=== PATIENT | female | born 1965 | race Caucasian/White ===

== ENCOUNTER → 2019-03-09 | Outpatient (CLI) | payer OTHER ==
[2019-03-09 09:28] LABS: BASOPHILS % (AUTO) 1 % (0-10); EOSINOPHILS # (AUTO) 0.1 10^3/uL (0.0-0.3); EOSINOPHILS % (AUTO) 2 % (0-10); HEMATOCRIT 45 % (35-52); HEMOGLOBIN 14.5 G/DL (11.5-16.0); LYMPHOCYTES # (AUTO) 1.8 X 10^3 (1.0-4.0); LYMPHOCYTES % (AUTO) 35 % (12-44); MEAN CORPUSCULAR HEMOGLOBIN 29 PG (25-34); MEAN CORPUSCULAR HGB CONC 32 G/DL (32-36); MEAN CORPUSCULAR VOLUME 88 FL (80-99); MEAN PLATELET VOLUME 10.3 FL (7.4-10.4); MONOCYTES # (AUTO) 0.3 X 10^3 (0.0-1.0); MONOCYTES % (AUTO) 6 % (0-12); NEUTROPHILS # (AUTO) 2.8 X 10^3 (1.8-7.8); NEUTROPHILS % (AUTO) 55 % (42-75); PLATELET COUNT 236 10^3/uL (130-400); RED CELL DISTRIBUTION WIDTH 12.5 % (10.0-14.5)
[2019-03-09 09:44] LABS: ALANINE AMINOTRANSFERASE 50 U/L (0-55); ALBUMIN 4.3 GM/DL (3.2-4.5); ALKALINE PHOSPHATASE 87 U/L (40-136); BILIRUBIN,TOTAL 0.7 MG/DL (0.1-1.0); BUN/CREATININE RATIO 14; CALCIUM 9.2 MG/DL (8.5-10.1); CARBON DIOXIDE 25 MMOL/L (21-32); CHLORIDE 103 MMOL/L (98-107); CREATININE SERUM 0.74 MG/DL (0.60-1.30); GFR ESTIMATED > 60; GLUCOSE 109 MG/DL (70-105); LIPASE 27 U/L (8-78); POTASSIUM 4.3 MMOL/L (3.6-5.0); SODIUM 138 MMOL/L (135-145); TOTAL PROTEIN 6.8 GM/DL (6.4-8.2)
[2019-03-09 09:58] LABS: AMYLASE 54 U/L (25-125)
== END ==
LOC: RAD FS 09:09
PROVIDERS: ATTEND Nurse Practitioner Family
DX: R10.84 Generalized abdominal pain (principal)
CPT/HCPCS: 36415; 80053; 82150; 83690; 85025

== ENCOUNTER 2019-03-22 05:36 | Outpatient (CLI) | payer OTHER ==
[~2019-03-22] VITALS: Ht 154 cm; Wt 79.5 kg
[2019-03-22] MEDS ORDERED: BUSP15TA60 PO (15:13)
[2019-03-22] MEDS ORDERED: ALPR0.25 PO (15:13)
[2019-03-22] MEDS ORDERED: PANT40TA2 PO (15:13)
[2019-03-22] MEDS ORDERED: SIMV20TA26 PO (15:13)
[2019-03-22] MEDS ORDERED: FLUO60TA PO (15:13)
[2019-03-22] MEDS ORDERED: ZOLP10TA5 PO (15:13)
== END 2019-03-22 15:02 | disposition home or self-care (01) ==
LOC: PREOP 05:36
PROVIDERS: ATTEND Surgery
DX: Z01.818 Encounter for other preprocedural examination (principal)

== ENCOUNTER 2021-09-17 12:47 | Emergency (ER) | payer OTHER ==
[~2021-09-17] VITALS: Ht 154.9 cm; Wt 79.5 kg
[~2021-09-17 12:47] MED LIST: ALPR0.25 PO; BUSP15TA60 PO; FLUO60TA PO; HYDR-34 PO; PANT40TA2 PO; SIMV20TA26 PO; ZOLP10TA5 PO
[2021-09-17 13:15] LABS: BASOPHILS % (AUTO) 0 % (0-10); EOSINOPHILS % (AUTO) 0 % (0-10); HEMATOCRIT 46 % (35-52); HEMOGLOBIN 15.6 g/dL (11.5-16.0); LYMPHOCYTES % (AUTO) 34 % (12-44); MEAN CORPUSCULAR HEMOGLOBIN 29 pg (25-34); MEAN CORPUSCULAR HGB CONC 34 g/dL (32-36); MEAN CORPUSCULAR VOLUME 86 fL (80-99); MEAN PLATELET VOLUME 10.1 fL (9.0-12.2); MONOCYTES # (AUTO) 0.4 10^3/uL (0.0-1.0); MONOCYTES % (AUTO) 7 % (0-12); NEUTROPHILS # (AUTO) 3.5 10^3/uL (1.8-7.8); NEUTROPHILS % (AUTO) 60 % (42-75); PLATELET COUNT 268 10^3/uL (130-400); WHITE BLOOD COUNT 5.9 10^3/uL (4.3-11.0)
[2021-09-17 13:17] LABS: BILIRUBIN,URINE NEGATIVE (NEGATIVE); CLARITY,URINE CLEAR; COLOR,URINE YELLOW; GLUCOSE, URINE (UA) NEGATIVE (NEGATIVE); KETONES,URINE NEGATIVE (NEGATIVE); LEUKOCYTE ESTERASE ,URINE NEGATIVE (NEGATIVE); NITRITE,URINE NEGATIVE (NEGATIVE); PROTEIN,URINE NEGATIVE (NEGATIVE)
[2021-09-17 13:40] LABS: BACTERIA,URINE FEW /HPF; WBC,URINE RARE /HPF
[2021-09-17 13:41] LABS: URINE OTHER CLUE CELLS NOTED /HPF
[2021-09-17 13:47] LABS: SODIUM 138 MMOL/L (135-145)
[2021-09-17 13:48] LABS: ALANINE AMINOTRANSFERASE 38 U/L (0-55); ALBUMIN 4.6 GM/DL (3.2-4.5); ALKALINE PHOSPHATASE 84 U/L (40-136); BILIRUBIN,TOTAL 0.7 MG/DL (0.1-1.0); BUN/CREATININE RATIO 9; CALCIUM 9.3 MG/DL (8.5-10.1); CARBON DIOXIDE 24 MMOL/L (21-32); CHLORIDE 103 MMOL/L (98-107); CREATININE SERUM 0.88 MG/DL (0.60-1.30); GFR ESTIMATED 77; GLUCOSE 102 MG/DL (70-105); POTASSIUM 3.9 MMOL/L (3.6-5.0); SALICYLATE < 0.3 MG/DL (5.0-20.0); TOTAL PROTEIN 7.1 GM/DL (6.4-8.2)
[2021-09-17 13:49] LABS: ACETAMINOPHEN < 10 UG/ML (10-30)
[2021-09-17 13:52] LABS: AMPHETAMINE SCREEN, URINE NEGATIVE (NEGATIVE); BARBITURATE SCREEN URINE NEGATIVE (NEGATIVE); BENZODIAZEPINES SCREEN URINE NEGATIVE (NEGATIVE); CANNABINOID SCREEN, URINE POSITIVE (NEGATIVE); COCAINE SCREEN URINE NEGATIVE (NEGATIVE); METHADONE STAT NEGATIVE (NEGATIVE); OPIATE SCREEN URINE NEGATIVE (NEGATIVE); OXYCODONE STAT NEGATIVE (NEGATIVE); PROPOXYPHENE STAT NEGATIVE (NEGATIVE); TRICYCLIC ANTIDEPRESSANTS SCRE NEGATIVE (NEGATIVE)
--- NOTE | 2021-09-17 14:12 | ED Psychosocial ---
General Chief Complaint: Suicidal Ideation Risk Stated Complaint: SUICIDAL IDEATION Nursing Triage Note: Patient presents to the ED with c/o suicidal ideation. States, "I just can do this life anymore." Reports she recently lost her father and hasn't seen her grandson for a year in a half. States that everything is just getting to be to much. Reports she has a plan to kill herself. Source: patient Exam Limitations: no limitations (KANDY GUADALUPE MD) History of Present Illness Date Seen by Provider: Sep 17, 2021 Time Seen by Provider: 12:58 Initial Comments 55-year-old female patient with history of depression, anxiety, hyperlipidemia complaining of suicidal ideation. Patient states she feels overwhelmed with stress related to her work, losing her father 1 month ago, unable to see her grandson since November of last year. She states for the last few weeks has had suicidal ideation with plan to take pills and kill herself. Patient denies homicidal ideation and hallucination. Patient denies history of suicidal attempt or mental hospitalization. Patient smokes cigarettes 1 pack daily and marijuana once a week. Patient states she drinks alcohol once a week or less. (KANDY GUADALUPE MD) Allergies and Home Medications Allergies Coded Allergies: No Known Drug Allergies (Unverified , 03/22/19) Patient Home Medication List Home Medication List Reviewed: Yes (KANDY GUADALUPE MD) Alprazolam (Xanax) 0.25 Mg Tablet, 0.25 MG PO PRN, (Reported) Entered as Reported by: YOANA ARRIAZA on 03/22/191512 Buspirone HCl (Buspirone HCl) 15 Mg Tablet, 15 MG PO DAILY, (Reported) Entered as Reported by: YOANA ARRIAZA on 03/22/191512 Fluoxetine HCl (Fluoxetine HCl) 60 Mg Tablet, 60 MG PO DAILY, (Reported) Entered as Reported by: YOANA ARRIAZA on 03/22/191512 Hydrocodone Bit/Acetaminophen (HYDROcodone/APAP 7.5/325 TAB) 1 Each Tablet, 1-2 TAB PO Q4H Prescribed by: BRIA DONAHUE on 03/29/19 0836 Pantoprazole Sodium (Protonix) 40 Mg Tablet.dr, 40 MG PO DAILY, (Reported) Entered as Reported by: YOANA ARRIAZA on 03/22/191512 Simvastatin (Simvastatin) 20 Mg Tablet, 20 MG PO DAILY, (Reported) Entered as Reported by: YOANA ARRIAZA on 03/22/191512 Zolpidem Tartrate (Zolpidem Tartrate) 10 Mg Tablet, 10 MG PO HS, (Reported) Entered as Reported by: YOANA ARRIAZA on 03/22/191512 Review of Systems Constitutional: no symptoms reported EENTM: no symptoms reported Respiratory: no symptoms reported Cardiovascular: no symptoms reported Gastrointestinal: no symptoms reported Genitourinary: no symptoms reported Musculoskeletal: no symptoms reported Skin: no symptoms reported Psychiatric/Neurological: See HPI (KANDY GUADALUPE MD) All Other Systems Reviewed Negative Unless Noted: Yes (KANDY GUADALUPE MD) Past [place] Hx Patient Social History Tobacco Use?: Yes Substance use?: Yes Substance type: Marijuana Additional substance use comme: Lats used yesterday Substance frequency: Once in a while Alcohol Use?: Yes Alcohol Frequency: Once in a while Pt feels they are or have been: No (KANDY GUADALUPE MD) Seasonal Allergies Seasonal Allergies: Yes (KANDY GUADALUPE MD) Past Medical History Surgery/Hospitalization HX: IBS; Anxiety; Depression; Cholecysectomy; Hysterectomy Surgeries: Yes (HEMORRHOIDECTOMY) Hysterectomy Respiratory: No Currently Using CPAP: No Currently Using BIPAP: No Cardiac: Yes High Cholesterol Neurological: No Genitourinary: No Gastrointestinal: Yes Gastroesophageal Reflux, Chronic Constipation, Chronic Diarrhea, Gall Bladder Disease Musculoskeletal: No Endocrine: No HEENT: Yes (GLASSES) Loss of Vision: Denies Hearing Impairment: Denies Cancer: No Psychosocial: Yes Sleep Difficulties, Anxiety, Depression Nursing Suicide Risk Notes: Patient presents to the ED with c/o suicidal ideation. States, "I just can't do this life anymore." Reports plan of taking pills. Reports she would take her sleeping pills, antidepressants, and xanax liek medications. Reports family issues, "I haven't seen my grandson since November of last year and my dad last month." Integumentary: No Blood Disorders: Yes Adverse Reaction/Blood Tranf: No (HAS HAD BLOOD WITH NO REACTION) (KANDY GUADALUPE MD) Physical Exam Vital Signs - First Documented 09/17/21 13:00 Temp 36.5 Pulse 96 Resp 18 B/P (MAP) 123/76 (92) Pulse Ox 97 O2 Delivery Room Air (DARRON SINGH MD) Capillary Refill : Less Than 3 Seconds (KANDY GUADALUPE MD) Height, Weight, BMI Height: '" Weight: lbs. oz. kg; 33.00 BMI Method: General Appearance: mild distress, obese, other (Depressed, tearful) HEENT: PERRL/EOMI, normal ENT inspection Neck: non-tender, full range of motion Respiratory: chest non-tender, lungs clear, normal breath sounds Cardiovascular: regular rate, rhythm, no edema Gastrointestinal: normal bowel sounds, non tender Extremities: normal range of motion, non-tender, normal inspection Neurologic/Psychiatric: no motor/sensory deficits, alert, depressed affect Appearance/Memory: neat, no memory impairment Behavior/Eye Contact: cooperative, normal speech, avoids eye contact Thoughts/Hallucinations: normal thought pattern, no apparent hallucination Skin: normal color (KANDY GUADALUPE MD) Suicide Risk Suicide Risk Suicide Risk Level / RN Screen: Moderate Low Suicide Risk Level []Suicidal Ideation WITHOUT method, intent, plan or behavior more than a month ago []]Modifiable risk factors and strong protective factors []No reported history of suicidal ideation or behavior []Patient reports/exhibits symptoms consistent with psychosis []Patient reports a plan that would be unrealistic/impossible to complete and intent []Suicide attempt prior to arrival (Indicates at LEAST Low Suicide Risk, consider other risk factors) Moderate Suicide Risk Level: []Suicidal ideation with method, WITHOUT plan, intent or behavior in the past month []Multiple risk factors and few protective factors []Patient reports intent to follow through on plan to end life if allowed to leave hospital, and has attempted to elope from the hospital High Suicide Risk Level: [] Suicidal ideation with intent or intent with a plan in the past month [] Patient has harmed self or attempted suicide while in the hospital [] Patient has hx of or current Command Auditory hallucinations to harm self or others that they follow without hesitation [] Patient refuses to disclose plan, and indicates intent to complete [] Patient reports plan that is possible to accomplish and/or has means to complete Risk factors supporting recommendation: [] Non-compliance with treatment (acute or chronic) [] Patient has access to or owns firearms and/or stockpiled medications [] Hx Impulsive behavior [] Pending incarceration or homelessness [] Sexual abuse [] Family history and/or exposure to suicide [] Adverse childhood experiences [] Exposure to violence or negative socio-political cultural, and economic forces [] Current or hx of substance use/abuse [] Chronic physical pain or other acute medical problem (AIDS, COPD, Cancer, etc) [] Perceived burden on family or others [] Patient has attempted to elope [] Unable to answer and/or unable to identify [] Refuses to agree to a safety plan Protective Factors supporting recommendation: [] Identifies reasons for living [] Future plans/goals [] Engaged in work or School [] Good family support network [] Good social support network [] Responsibility to family [] Belief that suicide is immoral, against their christian beliefs [] High spirituality and involvement in worship community [] Fear of or dying due to pain and suffering [] Established outpt psychiatric services [] Unable to answer and/or unable to identify Risk Assessment Tool Score: Moderate (KANDY GUADALUPE MD) Progress/Results/Core Measures Results/Orders Lab Results Laboratory Tests Test 09/17/21 12:56 09/17/21 13:10 09/17/21 13:25 Range/Units Urine Color YELLOW Urine Clarity CLEAR Urine pH 6.0 5-9 Urine Specific [place] <=1.005 1.016-1.022 Urine Protein NEGATIVE NEGATIVE Urine Glucose (UA) NEGATIVE NEGATIVE Urine Ketones NEGATIVE NEGATIVE Urine Nitrite NEGATIVE NEGATIVE Urine Bilirubin NEGATIVE NEGATIVE Urine Urobilinogen 0.2 < = 1.0 MG/DL Urine Leukocyte Esterase NEGATIVE NEGATIVE Urine RBC (Auto) NEGATIVE NEGATIVE Urine RBC NONE /HPF Urine WBC RARE /HPF Urine Squamous Epithelial Cells 10-25 H /HPF Urine Crystals NONE /LPF Urine Bacteria FEW H /HPF Urine Casts NONE /LPF Urine Mucus SMALL H /LPF Urine Other CLUE CELLS NOTED /HPF Urine Culture Indicated NO Urine Opiates Screen NEGATIVE NEGATIVE Urine Oxycodone Screen NEGATIVE NEGATIVE Urine Methadone Screen NEGATIVE NEGATIVE Urine Propoxyphene Screen NEGATIVE NEGATIVE Urine Barbiturates Screen NEGATIVE NEGATIVE Ur Tricyclic Antidepressants Screen NEGATIVE NEGATIVE Urine Phencyclidine Screen NEGATIVE NEGATIVE Urine Amphetamines Screen NEGATIVE NEGATIVE Urine Methamphetamines Screen NEGATIVE NEGATIVE Urine Benzodiazepines Screen NEGATIVE NEGATIVE Urine Cocaine Screen NEGATIVE NEGATIVE Urine Cannabinoids Screen POSITIVE H NEGATIVE White Blood Count 5.9 4.3-11.0 10^3/uL Red Blood Count 5.36 H 3.80-5.11 10^6/uL Hemoglobin 15.6 11.5-16.0 g/dL Hematocrit 46 35-52 % Mean Corpuscular Volume 86 80-99 fL Mean Corpuscular Hemoglobin 29 25-34 pg Mean Corpuscular Hemoglobin Concent 34 32-36 g/dL Red Cell Distribution Width 12.0 10.0-14.5 % Platelet Count 268 130-400 10^3/uL Mean Platelet Volume 10.1 9.0-12.2 fL Immature Granulocyte % (Auto) 0 % Neutrophils (%) (Auto) 60 42-75 % Lymphocytes (%) (Auto) 34 12-44 % Monocytes (%) (Auto) 7 0-12 % Eosinophils (%) (Auto) 0 0-10 % Basophils (%) (Auto) 0 0-10 % Neutrophils # (Auto) 3.5 1.8-7.8 10^3/uL Lymphocytes # (Auto) 2.0 1.0-4.0 10^3/uL Monocytes # (Auto) 0.4 0.0-1.0 10^3/uL Eosinophils # (Auto) 0.0 0.0-0.3 10^3/uL Basophils # (Auto) 0.0 0.0-0.1 10^3/uL Immature Granulocyte # (Auto) 0.0 0.0-0.1 10^3/uL Sodium Level 138 135-145 MMOL/L Potassium Level 3.9 3.6-5.0 MMOL/L Chloride Level 103 98-107 MMOL/L Carbon Dioxide Level 24 21-32 MMOL/L Anion Gap 11 5-14 MMOL/L Blood Urea Nitrogen 8 7-18 MG/DL Creatinine 0.88 0.60-1.30 MG/DL Estimat Glomerular Filtration Rate 77 BUN/Creatinine Ratio 9 Glucose Level 102 70-105 MG/DL Calcium Level 9.3 8.5-10.1 MG/DL Corrected Calcium 8.5-10.1 MG/DL Total Bilirubin 0.7 0.1-1.0 MG/DL Aspartate Amino Transf (AST/SGOT) 28 5-34 U/L Alanine Aminotransferase (ALT/SGPT) 38 0-55 U/L Alkaline Phosphatase 84 40-136 U/L Total Protein 7.1 6.4-8.2 GM/DL Albumin 4.6 H 3.2-4.5 GM/DL Salicylates Level < 0.3 L 5.0-20.0 MG/DL Acetaminophen Level < 10 L 10-30 UG/ML Serum Alcohol < 10 <10 MG/DL SARS-CoV-2 RNA (RT-PCR) Not Detected Not Detecte (DARRON SINGH MD) Vital Signs/I&O 09/18/21 13:37 Temp 36.5 Pulse 92 Resp 18 B/P (MAP) 123/79 Pulse Ox 97 O2 Delivery Room Air (DARRON SINGH MD) Blood Pressure Mean: 92 Progress Progress Note : Progress Note AndEvaluation of patient in ER showed 55-year-old female patient with history of depression and anxiety (stress presented to ER with complaining of suicidal ideation with plan of taking pills. CBC, CMPand UA was unremarkable except clue cells in UA and patient treated with 2000 mg of Flagyl for single dose treatment of bacterial vaginitis. UDS was positive for marijuana. Patient was evaluated by mental health graphic design intern and had criteria for inpatient placement but unfortunately there was not any available bed during yesterday evening and night and waiting for psych placement this morning. Patient was calm and cooperative. Patient care transferred to at 0700. (KANDY GUADALUPE MD) Progress Note : Time: 13:30 Progress Note I assumed care of the patient at shift change at 7 AM. Patient remained calm and cooperative with staff. At 1330 Patient accepted for psychiatric care by Dr. Madrid at [facility] (DARRON SINGH MD) Departure Impression Primary Impression: Suicidal ideation Additional Impressions: Depression Qualified Codes: F32.9 - Major depressive disorder, single episode, unspecified Bacterial vaginitis Disposition: 65 XFER TO PSYCH HOSP/UNIT Condition: Improved Transfer Transfer Reason: Exceeds level of care (Needs psychiatric care) Time Spoke to Accepting Phy: 13:[address] Madrid accepted the patient for psychiatric care [facility] Transfer Facility: [facility] Method of Transfer: Private Vehicle ([facility]) (DARRON SINGH MD) Departure-Patient Inst. Referrals: DEON SANDOVAL MD (PCP) Primary Care Physician Patient Instructions: OUTPT MENTAL HEALTH SERVICES KANDY GUADALUPE MD Sep 17, 2021 14:12 DARRON SINGH MD Sep 18, 2021 13:51
[2021-09-17] MEDS ORDERED: metroNIDAZOLE 500 MG (FLAGYL) TAB PO ONE (14:15)
[2021-09-17] MEDS ORDERED: IBUPROFEN 600 MG (MOTRIN) TAB PO ONE (19:45)
[2021-09-17] MEDS ORDERED: ALPRAZolam 0.25 MG (XANAX) TAB PO ONE (19:45)
[2021-09-18 13:37] VITALS: BP 123/79
== END 2021-09-18 14:30 ==
LOC: EDUNIT# 12:47 → ER FS 12:48
DX: R45.851 Suicidal ideations (principal); F32.A Depression, unspecified; N76.0 Acute vaginitis; B96.89 Other specified bacterial agents as the cause of diseases classified elsewhere; F17.210 Nicotine dependence, cigarettes, uncomplicated; Z20.822 Contact with and (suspected) exposure to COVID-19; Z90.49 Acquired absence of other specified parts of digestive tract; Z90.710 Acquired absence of both cervix and uterus
CPT/HCPCS: 36415; 80053; 80306; 81000; 85025; 87636; 93005; 99283; G0480 ×3; 80320; 80329